=== PATIENT | female | born 1985 | race American Indian/Alaskan Native ===

== ENCOUNTER 2017-08-25 07:28 | Inpatient (IN) | payer BC, OTHER ==
[2017-08-25 07:42] VITALS: BMI 31.1
[2017-08-25] MEDS: Lactated Ringer's 1,000 ML IV SCH ×2 (08:51→11:05)
[2017-08-25 08:54] LABS: HEMOGLOBIN 9.5 g/dL (12.0-16.0); MEAN CORPUSCULAR HEMOGLOBIN 22.1 pg (27.0-31.0); MEAN CORPUSCULAR HGB CONC 31.5 g/dL (33.0-37.0); RBC 4.3 Mil/uL (3.80-5.20); RED CELL DISTRIBUTION WIDTH 16.5 % (11.5-14.5); WHITE BLOOD COUNT 10.1 K/uL (4.8-10.8)
[2017-08-25] MEDS ORDERED: Oxytocin 30 units/LR 500ML 30 U/500 ML BAG IV ONE ×2 (10:45→13:43)
[2017-08-25] MEDS ORDERED: Fentanyl/Bupivacaine HCl 250 ML EPI ONE (12:19)
--- NOTE | 2017-08-25 12:59 | OBHP ---
Datetime: 08/25/2017 12:55 IP Adm Impression: Term, intrauterine IP Admit Plan: Admit to unit Admit Comment, IP Provider: The patient is who presents to labor and delivery complaining of p elvic pressure discomfort. Patient reports good movement no vaginal bleeding or leakage of flui d patient reports occasional contractions Past medical history none Past surgical history none No known drug allergies Social history denies alcohol tobacco use Medications vitamins Review of systems patient denies headache chest pain shortness of breath palpitations nausea vomit ing diarrhea heat or cold intolerance she is bruisability musculoskeletal or neurological complaints Vital signs stable afebrile Physical exam see notes Intrauterine at 39+ weeks 4 cm dilated Adequate pelvis, vertex presentation, estimated weight 7-1/2 pounds Anticipate normal vaginal delivery Routine labs, IV fluids, analgesia as needed Pelvic Type - PN: Adequate Extremities - PN: Normal Abdomen - PN: Normal Back - PN: Normal Breast - PN: Not Done Lungs - PN: Normal Heart - PN: Normal Thyroid - PN: Normal Neurologic - PN: Normal HEENT - PN: Normal General - PN: Normal FHR - Baseline A Provider: 145 Gestation - Est Wks by US: 39.0 Vital Signs Provider: Reviewed IP Chief Complaint: Uterine contractions; Maternal discomfort NICHD Variability Prov Fetus A: Moderate 6-25bpm NICHD Accel Fetus A IP Provider: [id number] FHR Category Provider Fetus A: Category I NICHD Decel Fetus A IP Provider: None Dilatation, Provider: 4 Effacement, Provider: 90 Station, Provider: -2 Genitourinary Exam: Normal DTRs - PN: Normal
[2017-08-25] MEDS ORDERED: Oxycodone/Acetaminophen 5/325 mg Tab PO PRN ×3 (14:01→16:59)
--- NOTE | 2017-08-25 14:15 | OBDS ---
MATERNAL INFORMATION Provider Comments: Delivered a live baby girl at 1:49 PM the baby was bulb suctioned on the perineum then transferred to the maternal chest. The cord was clamped and cut and 3 vessels noted cord blood was obtained and sent to the lab. The placenta was delivered at 153 and intact, the estimated blood l oss was 100 mL. The mother tolerated the procedure well and the baby went to the well baby nursery wi th Apgars of 9 and 9 LABOR INFORMATION Group B Beta Strep: Negative MEMBRANES Membranes Rupture Method: Artificial Rupture of Membranes: 08/25/2017 09:10 Amniotic Fluid Color: Clear Amniotic Fluid Amount: Small Amniotic Fluid Odor: Normal
[2017-08-25] MEDS: Oxycodone/Acetaminophen 5/325 mg Tab PO PRN ×2 (18:30→19:48)
[2017-08-26 06:32] LABS: HEMOGLOBIN 9.1 g/dL (12.0-16.0); MEAN CELL VOLUME 70.3 fl (81.0-99.0); MEAN CORPUSCULAR HEMOGLOBIN 22.6 pg (27.0-31.0); MEAN CORPUSCULAR HGB CONC 32.2 g/dL (33.0-37.0); RBC 4.01 Mil/uL (3.80-5.20); RED CELL DISTRIBUTION WIDTH 16.1 % (11.5-14.5)
[2017-08-26] MEDS: Lactated Ringer's 1,000 ML IV SCH ×2 (13:15→20:00)
--- NOTE | 2017-08-26 13:58 | CP.PCM.PN ---
Subjective - Date & Time of Evaluation Date of Evaluation: 08/26/17 Time of Evaluation: 13:53 - Subjective Subjective: headache and neck pain usually when sitting or standing. relieved when laying in bed. Objective - Medications Medications: Current Medications Oxytocin (Pitocin 20 Units In Lr) 1,000 mls @ 125 mls/hr IV .Q8H ANAYELI PRN Reason: Protocol Last Admin: 08/26/17 00:07 Dose: 125 mls/hr Lactated Ringer's (Lactated Ringer's) 1,000 mls @ 150 mls/hr IV .Q6H40M [facility] Ibuprofen (Motrin Tab) 600 mg PO Q6 PRN PRN Reason: Pain, Mild (1-3) Ketorolac Tromethamine (Toradol) 15 mg IVP Q6 PRN PRN Reason: Pain, moderate (4-7) Last Admin: 08/26/17 07:03 Dose: 15 mg Oxycodone/Acetaminophen (Percocet 5/325 Mg Tab) 1 tab PO Q4 PRN PRN Reason: Pain, moderate (4-7) Stop: 08/28/17 14:02 Last Admin: 08/25/17 19:48 Dose: 1 tab Oxycodone/Acetaminophen (Percocet 5/325 Mg Tab) 2 tab PO Q4 PRN PRN Reason: Pain, severe (8-10) Stop: 08/28/17 14:02 Last Admin: 08/26/17 03:04 Dose: 2 tab - Labs Labs: 08/26/17 04:55 Assessment and Plan - Assessment and Plan (Free Text) Assessment: post . Postdural puncture headache. Plan: Epidural blood patch re start IV fluids Encourage forced oral fluid intake with caffeine during daytime. Procedure: Epidural Blood Patch After discussing the risk and benefits of epidural blood patch the patient agrees and signed the consent. All questions answered. Patient in a sitting position. IV access established at the right hand with angiocath. 20G.Aseptic technique using betadine solution 3x. at same level of previous epidural puncture (L2-3). Lidocaine 1% injected to skin/subcutaneous 3ml. using loss of resistance technique with 17G touhy needle until epidural space reached. (-) CSF /blood/paresthesia. blood extracted 3ml at a time and injected to epidural space. Patient felt much better and sated that headache has improved and started to feel a little pressure in her back. Total of 9 ml of blood was injected. The procedure was uneventful and patient tolerated the procedure well. Was advised to lay flat in bed for at least one hour.
[2017-08-26] MEDS: Oxycodone/Acetaminophen 5/325 mg Tab PO PRN (17:33)
[2017-08-27] MEDS ORDERED: Lansinoh for Breast Feeding Mothers TP PRN (05:28)
[2017-08-27] MEDS ORDERED: Lansinoh for Breast Feeding Mothers TP ONE (05:28)
--- NOTE | 2017-08-27 20:07 | OBPPN ---
Datetime: 08/27/2017 19:56 PP Pain Prov: Within normal limits PP Nausea Prov: Denies PP Flatus Prov: Yes PP Breasts Prov: Normal PP Heart Prov: Normal PP Lungs Prov: Normal PP Abdomen/Uterus Prov: Normal PP Lochia Prov: Normal PP Vulva/Perineum Prov: Normal PP CVA Tenderness Prov: Normal PP Extremities Prov: Normal PP Comments Phys Exam Prov: Abd: Soft, NT, BS- present UT- Firm, NT PP Impression Prov: Normal progression PP Plan Prov: Continue present management PP Progress Note Prov: S/P vaginal delivery, S/P blood patch for spinal headaache. Pt reports that she still has some headache with occasinal dizzy spells. Pt that her baby is being kept for elevated bilirubin level and requests to stay 1 more day to enable her recover from the spinal headache. O ; BP 115/67 HR 82 Chest: CTA B/L Abd: Soft, NT Assessment: S/P , s/p blood patch for Spinal Headache. Anticipate discharge tomorrow.
--- NOTE | 2017-08-27 22:03 | OBPPN ---
Datetime: 08/27/2017 21:59 PP Pain Prov: Within normal limits PP Nausea Prov: Denies PP Flatus Prov: Yes PP Breasts Prov: Normal PP Heart Prov: Normal PP Lungs Prov: Normal PP Abdomen/Uterus Prov: Normal PP Lochia Prov: Normal PP Vulva/Perineum Prov: Normal PP CVA Tenderness Prov: Normal PP Extremities Prov: Normal PP Progress Note Prov: Pt ree evaluated. Pt reports that she is well and wants to be discharged home Her baby is cleared to go home. Plan: D/C Home F/u with Dr Adler in 6 weeks
--- NOTE | 2017-08-27 22:04 | OBDCSUM ---
Datetime: 08/27/2017 21:40 Discharged to, Provider: Home Follow up at, Provider: Dr. Adler Disch Instr Activity: Normal activity Disch Instr Diet: Regular Discharge Instructions, Provider: Routine instructions given Discharge Diagnosis, Provider: Term Delivered Discharge Time: 08/27/2017 22:02 Follow up in weeks, Provider: 6 weeks Follow up in weeks, Provider: 6 weeks Disch Referrals: None Contraception discussed, Prov: Yes Discharge Comment, Provider: S/P Uncomplicated , Clinically Stable Discharge Diagnosis Prov Other: S/P Uncomplicated , Clinically Stable
[2017-08-28 03:13] VITALS: BP 139/70; PULSE 93; RESP 20; TEMP 97.7; O2SAT 99
== END 2017-08-27 23:12 | disposition home or self-care (01) | DRG 775 ==
LOC: H.L&D 07:56 → H.OB/GYN 16:50
PROVIDERS: ADMIT Obstetrics & Gynecology Gynecology; ATTEND Obstetrics & Gynecology Gynecology
PROC: 10E0XZZ Delivery of Products of Conception, External Approach (ICD-10-PCS; principal; 2017-08-25)
PROC: 4A1HXCZ Monitoring of Products of Conception, Cardiac Rate, External Approach (ICD-10-PCS; 2017-08-25)
DX: O80 Encounter for full-term uncomplicated delivery (principal); Z37.0 Single live birth; Z3A.39 39 weeks gestation of pregnancy